=== PATIENT | male | born 1980 | race Caucasian/White ===

== ENCOUNTER 2018-03-18 11:07 | Emergency (ER) | payer BC ==
[2018-03-18 11:16] VITALS: BP 127/90
--- NOTE | 2018-03-18 11:55 | UC ---
Abdominal Pain Male HPI - HPI Summary HPI Summary: This patient is a 37 year old male [place] [facility] [place] a chief complaint of abd pain for 4-5 days. The pain is described as achey, not burning and located just above his bellybutton. The pain is rated 5/10 in severity. Symptoms aggravated by nothing. Symptoms alleviated by nothing. The patient treated the pain with nothing. Patient denies fever, chills, nausea, vomiting, diarrhea, blood in stool, dysuria. He is not afraid to eat food and is tolerating po well. Food does not change his pain. He also feels that he notes being bloated / gas in his belly . - History of Current Complaint Chief Complaint: UCAbdominalPain Stated Complaint: ABD PAIN Time Seen by Provider: 03/18/18 11:48 Hx Obtained From: Patient Onset/Duration: Sudden Onset, Lasting Days, Still Present Severity Currently: Moderate Pain Intensity: 5 Pain Scale Used: 0-10 Numeric Location: Epigastric Radiates: No Character: Aching Aggravating Factor(s): Nothing Alleviating Factor(s): Nothing Associated Signs And Symptoms: Positive: Negative - fever, chills, nausea, vomiting, diarrhea, blood in stool, dysuria - Allergies/Home Medications Allergies/Adverse Reactions: Allergies Allergy/AdvReac Type Severity Reaction Status Date / Time Tree Pollen Allergy Eyes Uncoded 03/18/18 11:16 Itchy/Swollen/Red/Watery PMH/Surg Hx/FS Hx/Imm Hx Previously Healthy: Yes Endocrine History: Diabetes - Type 2 Other Endocrine History: Negative: Thyroid Other Cardiovascular History: Negative: Cardiac Disease, Hypertension Other Respiratory History: Negative: COPD, Asthma Other GI/ History: negative Other Neurological History: negative Other Psychological History: negative Other Cancer History: negative - Surgical History Surgical History: None - Family History Known Family History: Positive: Cardiac Disease, Hypertension, Other - asthma - Social History Alcohol Use: Occasionally Substance Use Type: None Smoking Status (MU): Never Smoked Tobacco - Immunization History Most Recent Influenza Vaccination: Unk Most Recent Tetanus Shot: 2011 Review of Systems Constitutional: Negative - Fever, Chills Skin: Negative Eyes: Negative ENT: Negative Respiratory: Negative Cardiovascular: Negative Gastrointestinal: Negative - Nausea, vomiting, diarrhea or constipation, Abdominal Pain, Other - bloated, feeling of gas Genitourinary: Negative - Blood in stool, hematuria Motor: Negative Neurovascular: Negative Musculoskeletal: Negative Neurological: Negative Psychological: Negative Is Patient Immunocompromised?: No All Other Systems Reviewed And Are Negative: Yes Physical Exam - Summary Physical Exam Summary: Appearance: Well-Appearing, No Pain Distress, Well-Nourished Eyes: conjunctiva clear, no discharge ENT: Hearing grossly normal, no muffled/hoarse voice. Neck: Normal, Supple Respiratory/Lung Sounds: Lungs clear, Normal breath sounds, No respiratory distress, No accessory muscle use Cardiovascular: RRR, No murmur Abdomen: Soft, no guarding, not distended. Tender only in epigastrium - mild. No rigidity. Bowel Sounds: Present and normal Musculoskeletal: Normal Neurological: Alert, muscle tone normal Psychiatric:Normal, age appropriate behavior Skin: Normal, Warm, Dry, Normal color Triage Information Reviewed: Yes Vital Signs: Initial Vital Signs Temp 98.2 F 03/18/18 11:14 Pulse 83 03/18/18 11:14 Resp 18 03/18/18 11:14 BP 127/90 03/18/18 11:14 Pulse Ox 99 03/18/18 11:14 Vital Signs Reviewed: Yes Abd Pain Male Course/Dx - Course Course Of Treatment: This patient is a 37 year old male [place] [facility] [place] chief complaint of abd pain for 4-5 days. Patient will be diagnosed with gastritis. Patient will be discharged with prescription for omeprazole and trial of gas X over the counter and advised to follow up with PCP in 1 week. The patient is agreeable with this plan. - Differential Dx/Clinical Impression Provider Diagnoses: Gastritis. Dyspepsia. Bloating Discharge - Sign-Out/Discharge Documenting (check all that apply): Patient Departure All imaging exams completed and their final reports reviewed: No Studies - Discharge Plan Condition: Stable Disposition: HOME Prescriptions: Omeprazole CAP* [Prilosec CAP* 20 MG] 20 mg PO DAILY 14 Days #14 Patient Education Materials: Gastritis (ED), Gas and Bloating (ED) Referrals: Maurice Bianchi MD [Primary Care Provider] - 1 Week Additional Instructions: Please start taking the medication as prescribed to the pharmacy . You can also take Gas-X which is available [id number] Follow up with your primary care doctor in 1 week . Return to Urgent care / ER if symptoms get worse. - Billing Disposition and Condition Condition: STABLE Disposition: Home - Attestation Statements Document Initiated by Braedenibe: Yes Documenting Scribe: Rosemarie Mccall Provider For Whom Scribe is Documenting (Include Credential): Mario Pelletier MD Scribe Attestation: IRosemarie, scribed for Mario Pelletier MD on 03/18/18 at 1513. Scribe Documentation Reviewed: Yes Provider Attestation: The documentation as recorded by the Rosemarie pickard accurately reflects the service I personally performed and the decisions made by Mario perez MD
== END 2018-03-18 12:17 | disposition home or self-care (01) ==
LOC: UCEAST 11:07
DX: K29.70 Gastritis, unspecified, without bleeding (principal); R10.13 Epigastric pain; R14.0 Abdominal distension (gaseous)
CPT/HCPCS: 99211; G0463